=== PATIENT | male | born 1985 | race Caucasian/White ===

== ENCOUNTER 2017-04-17 12:33 | Emergency (ER) | payer OTHER ==
[2017-04-17 12:34] VITALS: BMI 38.7
[2017-04-17 12:39] VITALS: TEMP 97.9
--- NOTE | 2017-04-17 13:04 | C.PDOC ---
History Of Present Illness 31 yr old male presents to the ER with complaints of cough, congestion and sore throat for the last few days. Patient reports fever resolved 2 days ago but still has body aches and mild headache. Denies chest pain, SOB, nausea, vomiting , weakness or numbness. Time Seen by Provider: 04/17/17 12:46 Chief Complaint (Nursing): Flu-like Symptoms History Per: Patient History/Exam Limitations: no limitations Onset/Duration Of Symptoms: Days Sick Contacts (Context): None Past Medical History Reviewed: Historical Data, Nursing Documentation, Vital Signs Vital Signs: Last Vital Signs Temp 97.9 F 04/17/17 12:35 Pulse 75 04/17/17 15:14 Resp 16 04/17/17 15:14 BP 119/85 04/17/17 15:14 Pulse Ox 98 04/17/17 15:14 - [facility] Procedures OTHER SKIN & SUBQ I D (01/11/13) SOFT TISSUE INCISION NEC (01/11/13) Family History: States: No Known Family Hx - Social History Hx Alcohol Use: No Hx Substance Use: No - Immunization History Hx Tetanus Toxoid Vaccination: No Hx Influenza Vaccination: No Hx Pneumococcal Vaccination: No Review Of Systems Except As Marked, All Systems Reviewed And Found Negative. Constitutional: Positive for: Fever (Subjective. Resolved now.), Other ((+) Body aches) ENT: Positive for: Nose Congestion, Throat Pain (Sore throat ) Respiratory: Positive for: Cough Gastrointestinal: Negative for: Nausea, Vomiting Neurological: Negative for: Weakness, Numbness Physical Exam - Physical Exam Appears: Non-toxic, No Acute Distress Skin: Warm, Dry, No Rash Head: Atraumatic, Normacephalic Oral Mucosa: Moist Throat: Erythema, No Exudate, No Drooling Neck: Normal, Normal ROM, Supple Chest: Symmetrical, No Tenderness Cardiovascular: Rhythm Regular, No Murmur Respiratory: Normal Breath Sounds, No Rales, No Rhonchi, No Stridor, No Wheezing Extremity: Normal ROM, No Swelling Neurological/Psych: Oriented x3, Normal Speech, Normal Motor ED Course And Treatment O2 Sat by Pulse Oximetry: 100 (RA) Pulse Ox Interpretation: Normal Medical Decision Making Medical Decision Making: PLAN: * CXR * Rapid Strep * Rapid Flu * Tylenol PO pt reassesed; imaging tests neg. pt well appearing. stable for outpt mangement. return precautions advised. Disposition - Disposition Referrals: [facility] [Outside] [facility] [Outside] [facility] [Outside] Disposition: HOME/ ROUTINE Disposition Time: 03:00 Condition: STABLE Additional Instructions: please followup wiht your doctor. return to er with worsening symptoms or concerns. Prescriptions: Azithromycin [Zithromax] 250 mg PO DAILY #6 tab Instructions: Upper Respiratory Infection (ED) Forms: [facility] (Setswana) - Clinical Impression Clinical Impression: Upper respiratory infection - Scribe Statement The provider has reviewed the documentation as recorded by the Scribe Marcelina Gonzalez Provider Attestation: All medical record entries made by the Scribe were at my direction and personally dictated by me. I have reviewed the chart and agree that the record accurately reflects my personal performance of the history, physical exam, medical decision making, and the department course for this patient. I have also personally directed, reviewed, and agree with the discharge instructions and disposition.
--- NOTE | 2017-04-17 13:35 | RAD ---
HISTORY: cough COMPARISON: No prior. TECHNIQUE: Chest PA and lateral FINDINGS: LUNGS: No active pulmonary disease. PLEURA: No significant pleural effusion identified. No pneumothorax apparent. CARDIOVASCULAR: Normal. OSSEOUS STRUCTURES: No significant abnormalities. VISUALIZED UPPER ABDOMEN: Normal. OTHER FINDINGS: None. IMPRESSION: No active disease.
[2017-04-17 15:15] VITALS: BP 119/85; PULSE 75; RESP 16
[2017-04-17 15:34] VITALS: O2SAT 100
== END 2017-04-17 15:14 | disposition home or self-care (01) ==
LOC: C.ER 12:33
DX: J06.9 Acute upper respiratory infection, unspecified (principal)